=== PATIENT | male | born 1995 | race Two or more races ===

== ENCOUNTER 2018-04-01 11:32 | Day surgery (SDC) | payer BC ==
[~2018-04-01 11:32] MED LIST: LIDOCAINE 2%/EPINEPHRINE INJ 1.7 ML CARTRIDGE ONE
[2018-04-01] MEDS ORDERED: BUPIVACAINE HCL 0.5%/EPI 1:200000 INJ 1.8 ML CARTRIDGE ONE (11:56)
[2018-04-01] MEDS ORDERED: DEXAMETHASONE SOD PHOS INJ 10 MG/1 ML VIAL ONE (12:26)
[2018-04-01] MEDS ORDERED: ROCURONIUM BROMIDE INJ 50 MG/5 ML VIAL IV ONE (12:26)
[2018-04-01] MEDS ORDERED: HYDROMORPHONE HCL INJ/PF 2 MG/ML AMPULE ONE (12:26)
[2018-04-01] MEDS ORDERED: SUCCINYLCHOLINE CHLORIDE INJ 200 MG/10 ML VIAL ONE (12:26)
[2018-04-01] MEDS ORDERED: FENTANYL CITRATE INJ/PF 100 MCG/2 ML AMPUL ONE (12:26)
[2018-04-01] MEDS ORDERED: MIDAZOLAM 2 MG/2 ML INJ ONE (12:27)
--- NOTE | 2018-04-01 22:11 | SURGICARE OPERATIVE REPORT E ---
[facility] NAME: ROJAS ESPARZA AGE: 23Y DATE OF SURGERY: 04/01/2018 ROOM: PREOPERATIVE DIAGNOSES: 1. Chronic tonsillitis. 2. Tonsillar hypertrophy. POSTOPERATIVE DIAGNOSES: 1. Chronic tonsillitis. 2. Tonsillar hypertrophy. OPERATION PERFORMED: Bilateral tonsillectomy, patient age greater than 12. SURGEON: OZ BUSTILLO D.O. ANESTHESIA: General endotracheal tube. ANESTHESIA STAFF: Diaz Grijalva CRNA ESTIMATED BLOOD LOSS: 10 mL. FLUIDS: 700 mL. COMPLICATIONS: None. DRAINS: None. SPONGE COUNT: Verified. MATERIALS FORWARD SPECIMEN: Left and right tonsillar tissue was sent as a fresh specimen for rule out lymphoma protocol. FINDINGS: 1. The left tonsil was 4+ in size, the right tonsil was 3+ in size, and the tonsils were cryptic in nature. 2. Soft palatal tissues were redundant in nature and the uvula was thickened and elongated. INDICATIONS: This is a 23-year-old white male patient who was seen and evaluated in the [facility] office. 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 The patient also complained of a history of enlarging tonsils. Clinically the patient was noted to have significant tonsillar hypertrophy, left greater than right. The patient also complained of feeling chronically ill along with his chronic tonsillitis symptoms. There was extensive discussion held with the patient with recommendation and plan for tonsillectomy and to have the tonsils sent as fresh specimens for rule out lymphoma protocol. There is no family history of lymphoma. The patient had no lymphadenopathy noted during his evaluation. The procedure and all of its risks and complications were all discussed in detail with the patient. He voiced an understanding of the described surgical plan, agreed to proceed, and consent was obtained. PROCEDURE IN DETAIL: The patient was taken to the main operating room and placed on the operating room table in the supine position. Appropriate monitors were placed. Using mask and IV access, general anesthesia was induced. The patient was next transorally intubated without difficulty. The patient was rotated 90 degrees and positioned for tonsil surgery. The patient's lips, teeth, tongue and inside of the mouth were inspected and noted to be without defects. After the mouth gag was inserted and opened, and the patient placed into suspension local anesthetic with epinephrine was injected in a peritonsillar distribution to establish a tonsil block bilateral. There was a soft catheter placed through the patient's nose that was used to suspend the soft palate. Findings are as noted above. At this point, the plasma J-hook device was used to dissect and remove tonsillar tissue on each side. This device was also used to provide adequate hemostasis. Saline irritation was performed and suctioned. There was adequate hemostasis noted. The soft catheter was next released and removed from the patient's nose. The mouth gag was removed from the patient's mouth without difficulty. There was no damage to the lips, teeth, tongue, gums, or inside of the mouth. The patient was then returned to the anesthesia staff and was allowed to emerge from general anesthesia. The patient was extubated in the main operating room and was then transported to the post-anesthesia recovery unit in stable condition. There were no complications. DICTATING PHYSICIAN: OZ BUSTILLO D.O. [id number] PHY#: [id number] ID: [id number] JOB#: [id number] ACCT: [id number] cc:OZ BUSTILLO D.O. > MTDD
== END 2018-04-01 14:42 | disposition home or self-care (01) ==
LOC: SC 11:32
PROVIDERS: ATTEND Otolaryngology
DX: J35.1 Hypertrophy of tonsils (principal); D55.0 Anemia due to glucose-6-phosphate dehydrogenase [G6PD] deficiency
CPT/HCPCS: 88185 ×15; 88184; 88233; 88262; 88304 ×2; 42826; J2250; J3490 ×2; J3010; J1170; J0330; J1100; 170